=== PATIENT | female | born 1985 | race Two or more races ===

== ENCOUNTER 2025-04-21 09:46 | Emergency (ER) | payer MEDICAID, SELFPAY ==
[2025-04-21 10:18] VITALS: BP 109/70; PULSE 76; RESP 19; TEMP 36.1; O2SAT 98
[2025-04-21 10:21] VITALS: BMI 28.5
--- NOTE | 2025-04-21 10:47 | EDNOTE_ITS ---
<Statement entered by Arminda Rivera MD - 05/05/25 14:19> As co-signing physician, I was present and available for consult prn. I concur with the plan and care as documented by the midlevel provider. ED Ear RME/HPI General Chief complaint: Ear Stated complaint: BUG WENT IN TO LEFT EAR WHILE SLEEPING Time Seen by Provider: 04/21/25 09:49 Arrival date/time: 04/21/25 09:46 This is a 40-year-old female who comes into the emergency room with complaints of foreign body in left ear. Patient states that she was sleeping and she felt like there was a bug that went in her ear. Patient states that she tried to get it out with a Q-tip but did not want a patient in further. Patient denies any other complaints. Related Data Home Medications ?Medication ?Instructions ?Recorded ?Confirmed atorvastatin 10 mg tablet 10 mg PO QDAY 02/22/2012/21 Previous Rx's ?Medication ?Instructions ?Recorded acetaminophen-caffeine 500 mg-65 1 tab PO Q6H PRN pain #30 tabs 06/14/ mg tablet (Excedrin Tension Headache) Allergies Allergy/AdvReac Type Severity Reaction Status Date / Time No Known Allergies Allergy Verified 04/21/25 09:48 Review of Systems Review of Systems Systems Reviewed: All systems reviewed, normal except as documented Past Medical History Past Medical History NEUROLOGIC: Positive Neurological Disorders, Meningitis (as a baby) and Migraine; Negative Seizures CARDIAC: Positive Cardiac Disorders, Hypercholesterolemia and Hypotension; Negative Congestive Heart Failure, Edema, Cellulitis or Varicose Veins RESPIRATORY: Negative Respiratory Disorders, Chronic Obstructive Pulmonary Disease (COPD), Pneumonia, Tuberculosis or Sleep Apnea GASTROINTESTINAL: Positive Gastrointestinal Disorders and Obesity; Negative Hepatitis GENITOURINARY: Negative Genitourinary Disorders or Renal Disease REPRODUCTIVE: Positive Previous Pregnancies (x2) MUSCULOSKELETAL: Positive Carpal Tunnel Syndrome (shanda); Negative Musculoskeletal Disorders ENDOCRINE: Negative Endocrine Disorders, Diabetes Mellitus Type 1 or Diabetes Mellitus Type 2 HEMATOLOGIC: Positive Blood Disorders and Anemia OTHER HISTORY: Positive Chicken Pox; Negative Hospitalization, Autoimmune Disease, Shingles, Falls, Blood Transfusions, Blood Transfusion Reaction, Anesthesia Reactions, Chemotherapy, Radiation Therapy, MRSA, Measles, Mumps or Cancer Family History FAMILY HISTORY: Positive Family Cardiac Disorders and Family Surgery; Negative Family Psychiatric Problems, Family Respiratory Disorders, Family Gastrointestinal Problems, Family Cancer or Family Anesthesia Reaction Surgical History SURGICAL: Positive Tubal Ligation and Section; Negative Pacemaker Social History SMOKING STATUS: Never smoker ED Exam Narrative Physical exam: VITAL SIGNS: Reviewed. GENERAL APPEARANCE: Alert and interactive, follows commands, no acute distress HEAD AND FACE: Non-traumatic. ENT: PERRL, conjuctiva pink and clear, eyelid no trauma, Mucous membrane moist. Both TMs intact good light reflex no swelling, or erythema to left ear canal. NECK: Supple, nontender, no nuchal rigidity. CHEST: No tenderness, no crepitus, no paradoxical movement, no retractions. LUNGS: breathing even and unlabored HEART: Regular rate, cap refill less than 2 seconds ABDOMEN: Soft, nondistended, no guarding, nontender, no rebound, no masses, NEUROLOGICAL: Gross motor function intact sensory function intact, Appropriate for age. MUSCULOSKELETAL: low back nontender EXTREMITIES: No redness no swelling no skin breakdown on bilateral foot and leg. Distal neurovascular status intact bilateral foot SKIN: Color pink, dry Course Quality Measures none Vital Signs Vital signs: Vital Signs Temperature 97 F 04/21/25 10:18 Pulse Rate 76 04/21/25 10:18 Respiratory Rate 19 04/21/25 10:18 Blood Pressure 109/70 04/21/25 10:18 Pulse Oximetry (%) 98 04/21/25 10:18 Oxygen Delivery Method Room Air 04/21/25 10:18 Ear MDM Narrative MDM Narrative:: I assessed patient's left ear also right ear patient believed left ear had a bug in it. No bug was seen in left ear there was no swelling no erythema TM looks intact good light reflex. Patient has no other complaints. Will discharge patient. Patient told to come back to emergency room symptoms change or worsen. Dragon dictation: Although this document has been carefully reviewed, there may still be some phonetic and other typographical errors. These errors are purely grammatical due to imperfections in the software program and should not be construed in any way to compromise the substance of the patient's medical care during this visit. Patient data External records reviewed:: [facility] previous records Clinical information provided by:: patient Social determinants that could affect healthcare access:: none Patient has the following chronic illnesses:: none How is presenting disease/condition affected by chronic disease/condition?: no chronic disease Evaluation data The following diagnostics were reviewed and interpreted by me:: other (specify) (none ) Lab and/or radiology exams considered but not ordered:: none Interpretation Summary: see note Medications / Prescriptions Medications or Prescriptions considered but not ordered:: none Medication administrations:: see note Consultations Consultation(s) initiated? (list below): No Diagnosis Most likely diagnosis given after review of the tests above:: No foreign body to ear no otitis media otitis externa. Admission Indicated Admission indicated?: not indicated Admission Request Was there a request for admission?: No Disposition Plan Disposition Plan: Discharge Discharge Attestation Discharge Attestation: The patient and all family members were given an opportunity to ask questions and understood the discharge instructions. Discharge instructions specifically effects, indications for sooner follow up or return to the emergency department, and the expected course of current diagnosis. Patient condition: Stable Discharge Plan Plan Patient Disposition: HOME (Self Care) Patient condition on transfer: Stable Prescriptions/Referrals Prescriptions/Med Rec: No Action atorvastatin 10 mg Tablet 10 mg PO QDAY Excedrin Tension Headache 500-65 mg tablet 1 tab PO Q6H PRN (Reason: pain) Qty: 30 0RF Problem List Clinical Impression: Discomfort of ear Patient/Caregiver Discharge Instructions Discharge Activity: activity as tolerated Education Materials: ED Earache Without Infection (Adult) Additional Instructions: Follow up with primary provider in 1-2 days. Come back to ED if symptoms change or worsen Print Language: Bur[place]ian Stand Alone Forms: Katrina Award Info., Patient Portal Info Letter JAZMYN/NANCY Supervising Physician JAZMYN/NANCY Supervising Physician: [email or web address]
== END 2025-04-21 11:31 | disposition home or self-care (01) ==
LOC: SERX 11:03
PROVIDERS: Emergency Provider Emergency Medicine; PCP Physician Assistant
DX: H92.02 Otalgia, left ear (principal)
CPT/HCPCS: 99281